=== PATIENT | female | born 1970 | race African-American/Black ===

== ENCOUNTER → 2016-12-04 | Outpatient (CLI) | payer OTHER | LOC: CIMAGING 14:05 | PROVIDERS: ATTEND Physician Assistant | DX: Z12.31 Encounter for screening mammogram for malignant neoplasm of breast (principal) | CPT/HCPCS: G0202 ==

== ENCOUNTER → 2016-12-25 | Outpatient (CLI) | payer OTHER | LOC: CIMAGING 12:46 | PROVIDERS: ATTEND Physician Assistant | DX: Z12.39 Encounter for other screening for malignant neoplasm of breast (principal); N63 Unspecified lump in breast | CPT/HCPCS: 76641-PO; G0206 ==

== ENCOUNTER 2017-04-13 05:40 | Emergency (ER) | payer OTHER ==
[2017-04-13 05:59] VITALS: TEMP 99.3
[2017-04-13] MEDS ORDERED: HYDROCODONE/APAP 5/325 TAB ONE (06:06)
[2017-04-13] MEDS ORDERED: HYDROCODONE/APAP 5/325 TAB PO ONE (06:07)
--- NOTE | 2017-04-13 06:08 | EDPHY ---
H & P Time Seen by Provider: 04/13/17 05:56 HPI/ROS: CC: Right foot pain HPI: 46 y/o female with right lateral foot pain after stepping off a ladder and inverting her ankle approximately 8 days ago. She thought it was just a sprain but the pain is persisting. It is currently 8/10. It radiates up her leg after walking on it all week. She has been taking ibuprofen for the pain. No other injuries. No recent illness. REVIEW OF SYSTEMS: Constitutional: No fever, no chills. Eyes: No discharge. ENT: No sore throat. Respiratory: No cough, no shortness of breath. Cardiac: No chest pain, no palpitations. Gastrointestinal: No abdominal pain, no vomiting. Genitourinary: No hematuria. Musculoskeletal: No back pain. Skin: No rashes. Neurological: No headache. Past Medical/Surgical History: PMH: Occasional elevated blood pressure, allergies PSH: Anal Polypectomy FH: DM, HTN NKDA Meds: Oral contraception ("for perimenopausal hormone issues"); Singulair Social History: Quit smoking 3-4 months ago; Occasional ETOH; Occasional edible marijuana Smoking Status: Former smoker Physical Exam: General Appearance: Alert, moderate distress. Eyes: Pupils equal and round no pallor or injection. ENT, Mouth: Mucous membranes are moist. Respiratory: There are no retractions, lungs are clear to auscultation. Cardiovascular: Regular rate and rhythm. Gastrointestinal: Abdomen is soft and nontender. Neurological: Awake and alert, sensory and motor exams grossly normal. Skin: Warm and dry, no rashes. Musculoskeletal: Neck and back are supple and nontender. Extremities: Right foot with STS, dependent lateral ecchymosis. Tender to palpation over the 5th metatarsal. DP pulse intact. No swelling over lateral malleolus. No fibular head pain. Psychiatric: Patient is oriented X 3, there is no agitation. DIFFERENTIAL DIAGNOSIS: After history and physical exam differential diagnosis was considered for but not limited to foot sprain; foot fracture Constitutional: Initial Vital Signs Temperature (C) 99.3 F 04/13/17 05:54 Heart Rate 84 04/13/17 05:54 Respiratory Rate 16 04/13/17 05:54 Blood Pressure 174/124 H 04/13/17 05:54 O2 Sat (%) 97 04/13/17 05:54 O2 Delivery Mode Room Air Allergies/Adverse Reactions: No Known Allergies Allergy (Unverified 04/13/17 05:53) Home Medications: Medication Instructions Recorded Singulair 04/13/17 Medical Decision Making - Diagnostics Imaging: I viewed and interpreted images myself (Comminuted, displaced, and shortened fracture of the right 5th metatarsal.) Procedures: Procedure: Splint placement. A short leg posterior mold splint was applied by the geotechnical internFarhad thayer. After application of the splint I returned and re-examined the patient. The splint was adequately immobilizing the joint and distal to the splint the patient's circulation and sensation was intact. ED Course/Re-evaluation: The patient was seen and examined. Vital signs were reviewed. The patient's elevated blood pressure was noted and discussed with the patient. She states that it fluctuates and she has been seen for this by both her primary care provider and a central office inspector. She is not on any medications for her blood pressure. She will follow up with her primary care provider again regarding this. Her last visit with her primary care provider was approximately 3 weeks ago and she states her blood pressure was normal. An x-ray was obtained of her right foot which revealed a fracture of the 5th metatarsal. A short-leg posterior mold splint was placed by the Farhad Lipscomb. There re-examine the patient after the splint was applied and circulation, motor, and sensory were intact. Patient was given crutches and crutch training. She was given 1 Pierre for pain and a take-home pack. She will follow up with Orthopedics. I discussed the fracture with the orthopedic surgeon suction plate roller hand, Dr. Quoc Castro. Departure - Departure Disposition: Home, Routine, Self-Care Clinical Impression: Fracture of 5th metatarsal Qualifiers: Encounter type: initial encounter Fracture type: closed Fracture alignment: displaced Laterality: right Qualified Code(s): S92.351A - Displaced fracture of fifth metatarsal bone, right foot, initial encounter for closed fracture Condition: Good Instructions: Foot Fracture in Adults (ED), Hydrocodone/Acetaminophen (By mouth ), Crutch Instructions (ED), Hypertension (ED) Additional Instructions: Call the work station support specialist's office first thing Saturday morning to arrange follow up this coming week. You may need surgery for this fracture. Follow up with your primary care provider for your blood pressure in the next 1 - 2 weeks. Referrals: Quoc Castro MD [Medical Doctor] - As per Instructions Stand Alone Forms: Work Excuse
[2017-04-13] MEDS ORDERED: HYDROCOD/APAP 5/325 PREPACK#6 BTL TAKEHOME ONE (06:35)
[2017-04-13 07:06] VITALS: BP 164/102; PULSE 80; RESP 14; O2SAT 96
== END 2017-04-13 07:05 | disposition home or self-care (01) ==
LOC: CED 05:40
DX: S92.351A Displaced fracture of fifth metatarsal bone, right foot, initial encounter for closed fracture (principal); X58.XXXA Exposure to other specified factors, initial encounter; E11.9 Type 2 diabetes mellitus without complications; I10 Essential (primary) hypertension; Z87.891 Personal history of nicotine dependence
CPT/HCPCS: 73630-PO

== ENCOUNTER → 2018-01-14 | Outpatient (CLI) | payer OTHER | LOC: CIMAGING 11:16 | PROVIDERS: ATTEND Physician Assistant | DX: Z12.31 Encounter for screening mammogram for malignant neoplasm of breast (principal); Z80.3 Family history of malignant neoplasm of breast ==